=== PATIENT | female | born 1990 | race Asian ===

== ENCOUNTER 2017-02-05 16:21 | Emergency (ER) | payer BC ==
[2017-02-05 16:27] VITALS: BP 109/75; PULSE 80; TEMP 98.6; BMI 34.3
--- NOTE | 2017-02-05 17:07 | PDOC ---
History of Present Illness - General Chief Complaint: Weakness Stated Complaint: WEAKNESS Time Seen by Provider: 02/05/17 16:53 History Source: Patient Exam Limitations: No Limitations - History of Present Illness Initial Comments: 02/05/17 17:02 Patient came to emergency department on insistence of mother was concerned about a short-lived and resolved episode at home. Patient states felt very hot and then had chills that did not resolved with a hot shower. He laid down, and gradually felt better however mother was concerned about her blood pressure and insisted she come to emergency department. Patient has no history of hypo-or hypertension, has no other medical complaints, has normal menstrual cycles and is not sexually active. No recent URI, ear or throat pain, no one at home is sick. No recent travel. States since that time improved where she has no symptoms at all now. 02/05/17 17:02 Timing/Duration: unsure, 1-3 hours, gone Severity: mild Modifying Factors: improves with: rest Associated Symptoms: reports: fever/chills. denies: cough, headaches Past History - Travel Traveled outside of the country in the last 30 days: No Close contact w/someone who was outside of country & ill: No - Past Medical History Allergies/Adverse Reactions: Allergies Allergy/AdvReac Type Severity Reaction Status Date / Time No Known Allergies Allergy Verified 02/05/17 16:27 Home Medications: Ambulatory Orders Acetaminophen [Tylenol -] 325 mg PO Q6H 02/05/17 - Psycho/Social/Smoking Cessation Hx Anxiety: No Suicidal Ideation: No Smoking History: Never smoked Have you smoked in the past 12 months: No Information on smoking cessation initiated: No Hx Alcohol Use: No Drug/Substance Use Hx: No Substance Use Type: None Review of Systems - Review of Systems Able to Perform ROS?: Yes Is the patient limited Cuban proficient: Yes Constitutional: Yes: Symptoms Reported, See HPI, Chills, Fever, Malaise. No: Loss of Appetite HEENTM: Yes: See HPI. No: Symptoms Reported, Nose Congestion, Throat Pain Respiratory: Yes: See HPI. No: Symptoms reported, Cough, Shortness of Breath Cardiac (ROS): Yes: See HPI. No: Symptoms Reported, Palpitations, Syncope Integumentary: Yes: Symptoms Reported, See HPI, Pallor All Other Systems: Reviewed and Negative *Physical Exam - Vital Signs Last Vital Signs Temp Pulse Resp BP Pulse Ox 98.6 F 80 18 109/75 99 02/05/17 16:22 02/05/17 16:22 02/05/17 16:22 02/05/17 16:22 02/05/17 16:22 - Physical Exam General Appearance: Yes: Nourished, Appropriately Dressed. No: Apparent Distress HEENT: positive: JENNIFER, Normal ENT Inspection, TMs Normal, Pharynx Normal Neck: positive: Supple. negative: Tender, Lymphadenopathy (R), Lymphadenopathy (L) Respiratory/Chest: positive: Lungs Clear, Normal Breath Sounds Cardiovascular: positive: Regular Rate Gastrointestinal/Abdominal: positive: Soft. 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 Encourage rehydration as patient may be mildly dehydrated *DC/Admit/Observation/Transfer Diagnosis at time of Disposition: Vasovagal episode - Discharge Dispostion Disposition: HOME Condition at time of disposition: Stable Admit: No - Patient Instructions Printed Discharge Instructions: DI for Dehydration -- Adult Additional Instructions: Rest, drink lots of fluids: Teas, water, soups, Pedialyte Saltwater gargles Steamy showers/seem to face break up mucus Avoid contact with others until fevers and cough resolved Lots of handwashing and good hygiene Continue [id number] medications for symptomatic relief Tylenol or Motrin for fever and pain Followup with private physician in one to 2 days as needed Return to emergency department for worsened symptoms, fevers, dehydration
== END 2017-02-05 17:27 | disposition home or self-care (01) ==
LOC: JERFT 16:21
DX: R55 Syncope and collapse (principal)
CPT/HCPCS: 99281-25

== ENCOUNTER 2017-03-22 06:52 | Emergency (ER) | payer OTHER, BC ==
[2017-03-22 07:32] VITALS: BP 106/60; PULSE 77; TEMP 98.2; BMI 30.9
--- NOTE | 2017-03-22 08:04 | PDOC ---
History of Present Illness - General Chief Complaint: Injury Stated Complaint: RT FOOT INJURY (WORK) Time Seen by Provider: 03/22/17 07:28 History Source: Patient - History of Present Illness Occurred: reports: yesterday Severity: Yes: moderate Lower Extremity Pain Location: right: foot Method of Injury: Yes: direct blow Past History - Past Medical History Allergies/Adverse Reactions: Allergies Allergy/AdvReac Type Severity Reaction Status Date / Time No Known Allergies Allergy Verified 02/05/17 16:27 Home Medications: Ambulatory Orders NK [No Known Home Medication] 03/22/17 - Psycho/Social/Smoking Cessation Hx Anxiety: No Suicidal Ideation: No Smoking History: Never smoked Have you smoked in the past 12 months: No Information on smoking cessation initiated: No Hx Alcohol Use: No Drug/Substance Use Hx: No Substance Use Type: None Review of Systems - Review of Systems Musculoskeletal: Yes: Joint Pain, Joint Swelling *Physical Exam - Vital Signs Last Vital Signs Temp Pulse Resp BP Pulse Ox 98.2 F 77 18 106/60 100 03/22/17 07:28 03/22/17 07:28 03/22/17 07:28 03/22/17 07:28 03/22/17 07:28 - Physical Exam General Appearance: Yes: Appropriately Dressed. No: Apparent Distress HEENT: positive: Normal Voice Neck: positive: Supple Respiratory/Chest: negative: Respiratory Distress Extremity: positive: Swelling (minimal swelling w/ tto to mid foot, ankle wnl) Integumentary: positive: Dry, Warm Neurologic: positive: Fully Oriented, Alert, Normal Mood/Affect ED Treatment Course - RADIOLOGY Radiology Studies Ordered: Category Date Time Status FOOT-RIGHT [RAD] Stat Radiology 03/22/17 07:42 Ordered Medical Decision Making - Medical Decision Making 03/22/17 07:43 27 yo F, no sig hx, p/w pain and swelling to R foot s/p injury at work yesterday. States a metal gate fell onto foot. Has been able to bear weight but painful see exam R foot injury M/l sprain -Xr r/o fx -Declines meds in ED 03/22/17 08:23 XR neg for fracture. Pt discharged in stable condition *DC/Admit/Observation/Transfer Diagnosis at time of Disposition: Foot sprain Qualifiers: Encounter type: initial encounter Laterality: right Qualified Code(s): S93.601A - Unspecified sprain of right foot, initial encounter - Discharge Dispostion Disposition: HOME Condition at time of disposition: Good - Referrals Referrals: Lana Madsen MD [Primary Care Provider] - - Patient Instructions Printed Discharge Instructions: DI for Foot Sprain Additional Instructions: Take motrin as needed for pain
--- NOTE | 2017-03-22 08:30 | PDOC ---
*Physical Exam - Vital Signs Last Vital Signs Temp Pulse Resp BP Pulse Ox 98.2 F 77 18 106/60 100 03/22/17 07:28 03/22/17 07:28 03/22/17 07:28 03/22/17 07:28 03/22/17 07:28 ED Treatment Course - RADIOLOGY Radiology Studies Ordered: Category Date Time Status FOOT-RIGHT [RAD] Stat Radiology 03/22/17 07:42 Completed *DC/Admit/Observation/Transfer Diagnosis at time of Disposition: Foot sprain Qualifiers: Encounter type: initial encounter Laterality: right Qualified Code(s): S93.601A - Unspecified sprain of right foot, initial encounter - Discharge Dispostion Disposition: HOME Condition at time of disposition: Good - Referrals Referrals: Lana Madsen MD [Primary Care Provider] - - Patient Instructions Printed Discharge Instructions: DI for Foot Sprain Additional Instructions: Take motrin as needed for pain - Post Discharge Activity Work/School Note: Back to Work
== END 2017-03-22 08:24 | disposition home or self-care (01) ==
LOC: JER 06:52
DX: S93.601A Unspecified sprain of right foot, initial encounter (principal); W20.8XXA Other cause of strike by thrown, projected or falling object, initial encounter; Y93.89 Activity, other specified; Y92.89 Other specified places as the place of occurrence of the external cause; Y99.0 Civilian activity done for income or pay
CPT/HCPCS: 73630-TC-RT; 99281-25

== ENCOUNTER 2018-10-06 09:44 | Emergency (ER) | payer BC ==
[2018-10-06 09:57] VITALS: BP 112/84; PULSE 101; TEMP 98.3; BMI 34.3
[2018-10-06] MEDS ORDERED: ACETAMINOPHEN 325 MG TABLET (FP) PO ONE (10:22)
[2018-10-06] MEDS ORDERED: ACETAMINOPHEN 325 MG TABLET (FP) ONE (10:24)
--- NOTE | 2018-10-06 10:39 | PDOC ---
History of Present Illness - General Chief Complaint: Sore Throat Stated Complaint: THROATPAIN/ HEADACHE Time Seen by Provider: 10/06/18 10:13 History Source: Patient Exam Limitations: No Limitations Past History - Past Medical History Allergies/Adverse Reactions: Allergies Allergy/AdvReac Type Severity Reaction Status Date / Time No Known Allergies Allergy Verified 02/05/17 16:27 Home Medications: Ambulatory Orders NK [No Known Home Medication] 03/22/17 Anemia: No Asthma: No Cancer: No Cardiac Disorders: No CVA: No COPD: No DVT: No Dementia: No Diabetes: No Dialysis: No GI Disorders: No Disorders: No HTN: No Hypercholesterolemia: No Kidney Stones: No Liver Disease: No Psychiatric Problems: No Seizures: No Thyroid Disease: No Lung CA: No - Surgical History Abdominal Surgery: No Appendectomy: No Cardiac Surgery: No Cholecystectomy: No Gastric Stapling: No GI Surgery: No Lung Surgery: No Neurologic Surgery: No - Immunization History Td Vaccination: No TDAP Vaccination: No Immunization Up to Date: No - Suicide/Smoking/Psychosocial Hx Smoking History: Never smoked Have you smoked in the past 12 months: No Hx Alcohol Use: No Drug/Substance Use Hx: No Substance Use Type: None *Physical Exam - Vital Signs Last Vital Signs Temp Pulse Resp BP Pulse Ox 98.3 F 101 H 16 112/84 99 10/06/18 09:52 10/06/18 09:52 10/06/18 09:52 10/06/18 09:52 10/06/18 09:52 - Physical Exam General Appearance: No: Apparent Distress HEENT: positive: Normal Voice, Pharyngeal Erythema, Tonsillar Exudate Respiratory/Chest: positive: Lungs Clear, Normal Breath Sounds. negative: Respiratory Distress Cardiovascular: positive: Regular Rhythm, Regular Rate, S1, S2. negative: Murmur Gastrointestinal/Abdominal: positive: Normal Bowel Sounds, Soft. negative: Tender, Distended, Guarding, Rebound Integumentary: positive: Normal Color Neurologic: positive: Alert, Normal Mood/Affect Moderate Sedation - Procedure Monitoring Vital Signs: Procedure Monitoring Vital Signs Temperature 98.3 F 10/06/18 09:52 Pulse Rate 101 H 10/06/18 09:52 Respiratory Rate 16 10/06/18 09:52 Blood Pressure 112/84 10/06/18 09:52 O2 Sat by Pulse Oximetry (%) 99 10/06/18 09:52 ED Treatment Course - Medications Given in the ED: ED Medications Discontinued Medications Generic Name Dose Route Start Last Admin Trade Name Kate PRN Reason Stop Dose Admin Acetaminophen 975 mg 10/06/18 10:22 10/06/18 10:27 Tylenol - PO 10/06/18 10:23 975 mg ONCE ONE Administration Medical Decision Making - Medical Decision Making 28 y/o F with no sig pmh presents with sore throat, productive cough x 6 days. Also mentions having fever few days ago, but that has since improved. Had 1 episode of NBNB emesis today. Saw her PCP 4 days ago and was started on Amoxicillin but has not noted improvement with that. +nasal congestion. Denies sob, cp, diarrhea, urinary complaints. Did not take any antipyretics today Possible viral syndrome? Consider strep as well though patient is already taking Amoxicillin Plan: Rapid strep, BONNIEG 10/06/18 10:37 Rapid strep negative Likely viral syndrome Supportive care encouraged Stable for dc 10/06/18 11:48 *DC/Admit/Observation/Transfer Diagnosis at time of Disposition: Viral syndrome - Discharge Dispostion Disposition: HOME Condition at time of disposition: Stable Decision to Admit order: No - Referrals Referrals: Lana Madsen MD [Primary Care Provider] - 2 Days - Patient Instructions Printed Discharge Instructions: DI for Viral Upper Respiratory Infection -- Adult Additional Instructions: Thank you for choosing [facility]. It was a pleasure taking care of you. Likely you have viral infection. Recommend hydration - drink at least 2L of water daily Use saline nasal spray or Nedi-pot to help alleviate congestion Follow-up with your primary care doctor in 2-3 days for further eval. Return to the Emergency Department if your symptoms worsen or persist or have other concerning symptoms. - Post Discharge Activity
== END 2018-10-06 11:56 | disposition home or self-care (01) ==
LOC: JERFT 09:44
DX: B34.9 Viral infection, unspecified (principal)
CPT/HCPCS: 84703; 87070; 87880; 99281-25

== ENCOUNTER 2018-10-17 08:31 | Emergency (ER) | payer BC ==
[2018-10-17 08:53] VITALS: BP 105/75; PULSE 87; TEMP 98.8; BMI 34.3
--- NOTE | 2018-10-17 10:06 | PDOC ---
History of Present Illness - General Chief Complaint: Cold Symptoms Stated Complaint: CHEST PAIN Time Seen by Provider: 10/17/18 09:01 History Source: Patient Exam Limitations: No Limitations Past History - Past Medical History Allergies/Adverse Reactions: Allergies Allergy/AdvReac Type Severity Reaction Status Date / Time No Known Allergies Allergy Verified 10/17/18 09:05 Home Medications: Ambulatory Orders NK [No Known Home Medication] 03/22/17 Anemia: No Asthma: No Cancer: No Cardiac Disorders: No CVA: No COPD: No DVT: No Dementia: No Diabetes: No Dialysis: No GI Disorders: No Disorders: No HTN: No Hypercholesterolemia: No Kidney Stones: No Liver Disease: No Psychiatric Problems: No Seizures: No Thyroid Disease: No Lung CA: No - Surgical History Abdominal Surgery: No Appendectomy: No Cardiac Surgery: No Cholecystectomy: No Gastric Stapling: No GI Surgery: No Lung Surgery: No Neurologic Surgery: No - Immunization History Td Vaccination: No TDAP Vaccination: No Immunization Up to Date: No - Suicide/Smoking/Psychosocial Hx Smoking History: Never smoked Have you smoked in the past 12 months: No Hx Alcohol Use: No Drug/Substance Use Hx: No Substance Use Type: None *Physical Exam - Vital Signs Last Vital Signs Temp Pulse Resp BP Pulse Ox 98.8 F 87 17 105/75 100 10/17/18 08:50 10/17/18 08:50 10/17/18 08:50 10/17/18 08:50 10/17/18 08:50 - Physical Exam General Appearance: No: Apparent Distress HEENT: positive: Pharynx Normal, Nasal Congestion. negative: Pharyngeal Erythema, Tonsillar Exudate, Rhinorrhea Respiratory/Chest: positive: Lungs Clear, Normal Breath Sounds. negative: Respiratory Distress Cardiovascular: positive: Regular Rhythm, Regular Rate, S1, S2. negative: Murmur Gastrointestinal/Abdominal: positive: Normal Bowel Sounds, Soft. negative: Tender, Distended, Guarding, Rebound Integumentary: positive: Normal Color Neurologic: positive: Alert, Normal Mood/Affect ED Treatment Course - RADIOLOGY Radiology Studies Ordered: Category Date Time Status CHEST PA & LAT [RAD] Stat Radiology 10/17/18 09:09 Taken Medical Decision Making - Medical Decision Making 28 y/o F with no sig pmh presents with productive cough, congestion, rhinorrhea and chest pain only with coughing x 3 days. Was seen 2 weeks ago for viral URI as well. 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 Denies fever, throat pain, ear pain, sob, cp, abd pain, n/v/d. CXR negative Likely viral URI Advised f/u with PCP 10/17/18 10:05 *DC/Admit/Observation/Transfer Diagnosis at time of Disposition: Viral URI with cough - Discharge Dispostion Disposition: HOME Condition at time of disposition: Stable Decision to Admit order: No - Referrals Referrals: Lana Madsen MD [Primary Care Provider] - 2 Days - Patient Instructions Printed Discharge Instructions: DI for Viral Upper Respiratory Infection -- Adult Additional Instructions: Thank you for choosing [facility]. It was a pleasure taking care of you. Your chest xray was negative for infection Recommend Nedi Pot to help alleviate congestion. Can also try saline nasal spray Stay hydrated - at least 2 L of water daily Can try Mucinex or Robitussin as needed for cough Follow-up with your doctor in 2-3 days Return to the Emergency Department if your symptoms worsen or persist or have other concerning symptoms. - Post Discharge Activity
--- NOTE | 2018-10-18 11:49 | EKG ---
Test Reason : Blood Pressure : / mmHG Vent. Rate : 096 BPM Atrial Rate : 096 BPM P-R Int : 130 ms QRS Dur : 082 ms QT Int : 368 ms P-R-T Axes : 059 043 029 degrees QTc Int : 464 ms NORMAL SINUS RHYTHM NORMAL ECG NO PREVIOUS ECGS AVAILABLE Confirmed by BERYL GHOSH, SARIKA ([id number]) on 10/18/2018 11:48:56 AM Referred By: Confirmed By:SARIKA CORDOBA MD
== END 2018-10-17 10:11 | disposition home or self-care (01) ==
LOC: JERFT 08:31
DX: J06.9 Acute upper respiratory infection, unspecified (principal); B97.89 Other viral agents as the cause of diseases classified elsewhere
CPT/HCPCS: 71046-TC-FY; 93005; 93010; 99281-25

== ENCOUNTER 2021-01-08 17:34 | Emergency (ER) | payer BC ==
[2021-01-08 17:47] VITALS: BP 109/75; PULSE 91; TEMP 98.1; BMI 40.1
[2021-01-08] MEDS ORDERED: diazePAM 5 MG TABLET PO ONE (18:14)
[2021-01-08] MEDS ORDERED: LIDOCAINE 5% TOPICAL PATCH TP ONE (18:14)
[2021-01-08] MEDS ORDERED: KETOROLAC TROMETHAMINE 15 MG/ML VIAL IM ONE (18:14)
[2021-01-08] MEDS ORDERED: KETOROLAC TROMETHAMINE 15 MG/ML VIAL ONE (18:16)
[2021-01-08] MEDS ORDERED: diazePAM 5 MG TABLET ONE (18:22)
[2021-01-08] MEDS ORDERED: LIDOCAINE 5% TOPICAL PATCH ONE (18:22)
[2021-01-09] MEDS ORDERED: LIDOCAINE PATCH REMOVAL MC SCH (06:30)
== END 2021-01-08 18:27 | disposition home or self-care (01) ==
LOC: JER 17:34 → JERFT 17:34
PROC: 3E0233Z Introduction of Anti-inflammatory into Muscle, Percutaneous Approach (ICD-10-PCS; principal; 2021-01-08)
DX: M54.5 Low back pain (principal)
CPT/HCPCS: 99284-25